=== PATIENT | female | born 1940 | race American Indian/Alaskan Native ===

== ENCOUNTER 2024-06-15 11:57 | Emergency (ER) | payer MEDICARE, OTHER ==
[2024-06-15 12:33] VITALS: BP 135/74; PULSE 58
== END 2024-06-15 13:37 | disposition home or self-care (01) ==
LOC: DL.ED 11:57
DX: U07.1 COVID-19 (principal); I10 Essential (primary) hypertension; Z79.899 Other long term (current) drug therapy; Z88.6 Allergy status to analgesic agent; Z88.5 Allergy status to narcotic agent
CPT/HCPCS: 71045; 87804; 99283; U0002

== ENCOUNTER 2025-01-07 17:00 | Emergency (ER) | payer MEDICARE, OTHER ==
[2025-01-07] MEDS ORDERED: Sodium Chloride 0.9% 10 ML Syringe FLUSH PRN (17:21)
[2025-01-07 17:38] LABS: BASOPHILS PERCENT AUTO 0.1 % (0.0-1.0); HEMATOCRIT 30.9 % (37.0-47.0); HEMOGLOBIN 10.1 g/dL (12.0-16.0); LYMPHOCYTES PERCENT AUTO 11.1 % (20.5-50.1); MEAN CORPUSCULAR HEMOGLOBIN 30.4 pg (27.0-34.0); MEAN CORPUSCULAR HGB CONC 32.7 g/dL (33.0-35.0); MEAN CORPUSCULAR VOLUME 93.1 fL (80-100); MONOCYTES PERCENT AUTO 10.9 % (2-8); NEUTROPHILS PERCENT AUTO 76.9 % (42.2-75.2); PLATELET COUNT,PLT 247 10^3/uL (150-450); RED BLOOD CELL COUNT 3.32 10^6/uL (4.2-5.4); WHITE BLOOD CELL COUNT,WBC 8.7 10^3/uL (5.0-10.0)
[2025-01-07 17:44] VITALS: BP 103/90; PULSE 48
[2025-01-07 17:54] LABS: INR 0.9 (0.9-1.2); PROTHROMBIN TIME 9.3 SEC (9.0-12.0)
[2025-01-07] MEDS: Aspirin 81 MG Tab.Chew PO ONE (17:56)
[2025-01-07 18:01] LABS: A/G RATIO 1.3; BILIRUBIN TOTAL 0.5 mg/dL (0.2-1.0); BUN/CREATININE RATIO 24.8 (No establ ref range); C-REACTIVE PROTEIN 0.52 ng/dL (<=0.50); CALCIUM 9.1 mg/dL (8.5-10.1); CREATININE 1.21 mg/dL (0.55-1.02); EST CRCL DRUG DOSING (CG) 28.35 mL/min; MAGNESIUM 1.8 mg/dL (1.8-2.4); PROTEIN TOTAL,TP 7.1 g/dL (6.4-8.2)
[2025-01-07 18:05] LABS: ANION GAP 14.9 mEq/L (7-13); POTASSIUM,K 4.9 mmol/L (3.5-5.1)
[2025-01-07 18:39] LABS: T4 FREE 1.08 ng/dL (0.76-1.46)
[2025-01-07] MEDS: Sodium Chloride 0.9% 1,000 ML IV ONE (18:42)
== END 2025-01-07 19:40 | disposition home or self-care (01) ==
LOC: DL.ED 17:00
DX: R60.0 Localized edema (principal); T46.2X5A Adverse effect of other antidysrhythmic drugs, initial encounter; B34.9 Viral infection, unspecified; I10 Essential (primary) hypertension; Z88.5 Allergy status to narcotic agent; Z79.899 Other long term (current) drug therapy; Z86.16 Personal history of COVID-19
CPT/HCPCS: 36415; 71045; 80053; 83735; 83880; 84439; 84443; 84484; 85025; 85610; 86140; 93005; 93010; 96360; 99284; 99285-25; A9270-GY; J7030

== ENCOUNTER 2025-02-09 05:20 | Emergency (ER) | payer MEDICARE, OTHER ==
[2025-02-09 05:34] VITALS: PULSE 59
[2025-02-09] MEDS ORDERED: Sodium Chloride 0.9% 10 ML Syringe FLUSH PRN (05:50)
[2025-02-09] MEDS: Aspirin 81 MG Tab.Chew PO ONE (05:57)
[2025-02-09 06:03] LABS: BASOPHILS PERCENT AUTO 0.3 % (0.0-1.0); EOSINOPHILS PERCENT AUTO 1.5 % (1.0-3.0); HEMATOCRIT 34.4 % (37.0-47.0); HEMOGLOBIN 11.1 g/dL (12.0-16.0); LYMPHOCYTES PERCENT AUTO 17.7 % (20.5-50.1); MEAN CORPUSCULAR HEMOGLOBIN 30.4 pg (27.0-34.0); MEAN CORPUSCULAR HGB CONC 32.3 g/dL (33.0-35.0); MEAN CORPUSCULAR VOLUME 94.2 fL (80-100); MONOCYTES PERCENT AUTO 10.9 % (2-8); NEUTROPHILS PERCENT AUTO 69.6 % (42.2-75.2); PLATELET COUNT,PLT 201 10^3/uL (150-450); RED BLOOD CELL COUNT 3.65 10^6/uL (4.2-5.4); WHITE BLOOD CELL COUNT,WBC 3.4 10^3/uL (5.0-10.0)
[2025-02-09] MEDS: Nitroglycerin 0.4 MG Tab.SL SL ONE (06:08)
[2025-02-09 06:25] LABS: A/G RATIO 1.2; ANION GAP 11.8 mEq/L (7-13); BILIRUBIN TOTAL 0.8 mg/dL (0.2-1.0); BUN/CREATININE RATIO 12.8 (No establ ref range); CALCIUM 9.1 mg/dL (8.5-10.1); CREATININE 0.78 mg/dL (0.55-1.02); EST CRCL DRUG DOSING (CG) 43.98 mL/min; MAGNESIUM 2.1 mg/dL (1.8-2.4); POTASSIUM,K 3.8 mmol/L (3.5-5.1); PROTEIN TOTAL,TP 7.4 g/dL (6.4-8.2)
[2025-02-09] MEDS: Acetaminophen 325 MG Tab PO ONE (06:30)
[2025-02-09] MEDS ORDERED: Lisinopril 10 MG Tab ONE (13:21)
[2025-02-09] MEDS: Lisinopril 10 MG Tab PO ONE (13:22)
[2025-02-09 13:23] VITALS: BP 0/0
== END 2025-02-09 07:35 | disposition home or self-care (01) ==
LOC: DL.ED 05:20
DX: M25.551 Pain in right hip (principal); I10 Essential (primary) hypertension; Z79.899 Other long term (current) drug therapy; Z88.5 Allergy status to narcotic agent; Z86.16 Personal history of COVID-19; X58.XXXA Exposure to other specified factors, initial encounter
CPT/HCPCS: 36415; 71045; 72100; 73502; 80053; 83735; 83880; 84484; 85025; 85379; 93005; 93010; 99284; 99285; A9270

== ENCOUNTER 2025-02-11 17:34 | Emergency (ER) | payer MEDICARE, OTHER ==
[2025-02-11 17:50] VITALS: BP 152/68; PULSE 62
== END 2025-02-11 18:09 | disposition home or self-care (01) ==
LOC: DL.ED 17:34
DX: I10 Essential (primary) hypertension (principal); Z86.16 Personal history of COVID-19; Z88.5 Allergy status to narcotic agent; Z79.899 Other long term (current) drug therapy
CPT/HCPCS: 99283

== ENCOUNTER 2025-04-01 20:40 | Emergency (ER) | payer MEDICARE, OTHER ==
[2025-04-01 21:02] VITALS: BP 165/63; PULSE 60
== END 2025-04-01 22:03 | disposition home or self-care (01) ==
LOC: DL.ED 20:40
DX: K60.0 Acute anal fissure (principal); K59.00 Constipation, unspecified; I10 Essential (primary) hypertension; Z86.16 Personal history of COVID-19; Z79.899 Other long term (current) drug therapy; Z88.5 Allergy status to narcotic agent
CPT/HCPCS: 74018; 99283

== ENCOUNTER 2025-04-06 08:32 | Emergency (ER) | payer MEDICARE, OTHER ==
[2025-04-06 09:17] LABS: BASOPHILS PERCENT AUTO 0.2 % (0.0-1.0); LYMPHOCYTES PERCENT AUTO 12.1 % (20.5-50.1); MEAN CORPUSCULAR HEMOGLOBIN 31.3 pg (27.0-34.0); MEAN CORPUSCULAR HGB CONC 33.3 g/dL (33.0-35.0); MEAN CORPUSCULAR VOLUME 93.8 fL (80-100); MONOCYTES PERCENT AUTO 10.3 % (2-8); NEUTROPHILS PERCENT AUTO 76.4 % (42.2-75.2); PLATELET COUNT,PLT 314 10^3/uL (150-450)
[2025-04-06 09:37] LABS: A/G RATIO 1.2; ALBUMIN 3.6 g/dL (3.4-5.0); ANION GAP 15.2 mEq/L (7-13); BILIRUBIN DIRECT 0.1 mg/dL (0.0-0.2); BILIRUBIN INDIRECT 0.5; BILIRUBIN TOTAL 0.6 mg/dL (0.2-1.0); CALCIUM 9.4 mg/dL (8.5-10.1); CREATININE 0.9 mg/dL (0.55-1.02); EST CRCL DRUG DOSING (CG) 38.12 mL/min; POTASSIUM,K 4.2 mmol/L (3.5-5.1); PROTEIN TOTAL,TP 6.6 g/dL (6.4-8.2)
[2025-04-06 09:42] LABS: PROTHROMBIN TIME 10.1 SEC (9.0-12.0)
[2025-04-06] MEDS: Iopamidol 612 MG/ML 100 ML Bottle IVPUSH ONE (10:12)
[2025-04-06] MEDS: Acetaminophen 325 MG Tab PO ONE (11:00)
[2025-04-06 11:38] LABS: APPEARANCE,URINE CLEAR (CLEAR); BILIRUBIN,URINE NEGATIVE (NEGATIVE); COLOR,URINE YELLOW (YELLOW); GLUCOSE,URINE NEGATIVE (NEGATIVE); KETONES,URINE NEGATIVE (NEGATIVE); LEUKOCYTE ESTERASE,URINE NEGATIVE (NEGATIVE); NITRITE,URINE NEGATIVE (NEGATIVE); OCCULT BLOOD,URINE NEGATIVE (NEGATIVE); PROTEIN,URINE NEGATIVE (NEGATIVE); UROBILINOGEN,URINE 0.2 mg/dL (0.2-1.0)
[2025-04-06 11:45] LABS: BACTERIA,URINE RARE /HPF (0-FEW/HPF); EPITHELIAL CELLS,URINE RARE /HPF (NOT SEEN); RBC,URINE NOT SEEN /HPF (0-5); WBC,URINE NOT SEEN /HPF (0-5/HPF)
[2025-04-06 11:46] LABS: MUCUS,URINE RARE /LPF (NOT SEEN)
[2025-04-06 12:26] VITALS: BP 103/55; PULSE 58
== END 2025-04-06 12:30 | disposition home or self-care (01) ==
LOC: DL.ED 08:32
DX: R10.84 Generalized abdominal pain (principal); I10 Essential (primary) hypertension; Z86.16 Personal history of COVID-19; Z88.5 Allergy status to narcotic agent; Z79.899 Other long term (current) drug therapy
CPT/HCPCS: 36415; 74177; 80048; 80076; 81001; 82150; 83690; 85025; 85610; 93005; 93010; 99283; 99284; A9270; Q9967

== ENCOUNTER 2025-04-12 11:03 | Emergency (ER) | payer MEDICARE, OTHER ==
[2025-04-12] MEDS ORDERED: Sodium Chloride 0.9% 10 ML Syringe FLUSH PRN (11:48)
[2025-04-12 12:20] LABS: BASOPHILS PERCENT AUTO 0.2 % (0.0-1.0); EOSINOPHILS PERCENT AUTO 0.5 % (1.0-3.0); HEMATOCRIT 33.7 % (37.0-47.0); HEMOGLOBIN 10.8 g/dL (12.0-16.0); LYMPHOCYTES PERCENT AUTO 12.3 % (20.5-50.1); MEAN CORPUSCULAR HEMOGLOBIN 30.8 pg (27.0-34.0); MONOCYTES PERCENT AUTO 8.6 % (2-8); NEUTROPHILS PERCENT AUTO 78.4 % (42.2-75.2); PLATELET COUNT,PLT 312 10^3/uL (150-450); RED BLOOD CELL COUNT 3.51 10^6/uL (4.2-5.4)
[2025-04-12] MEDS: Lactated Ringers 1,000 ML IV SCH (12:25)
[2025-04-12 12:39] LABS: INR 0.9 (0.9-1.2); PROTHROMBIN TIME 9.9 SEC (9.0-12.0)
[2025-04-12 12:41] LABS: APPEARANCE,URINE CLEAR (CLEAR); BILIRUBIN,URINE SMALL (NEGATIVE); COLOR,URINE YELLOW (YELLOW); GLUCOSE,URINE NEGATIVE (NEGATIVE); KETONES,URINE 15 (NEGATIVE); LEUKOCYTE ESTERASE,URINE NEGATIVE (NEGATIVE); NITRITE,URINE NEGATIVE (NEGATIVE); OCCULT BLOOD,URINE NEGATIVE (NEGATIVE); PH,URINE 5.5 (5.0-9.0); PROTEIN,URINE TRACE (NEGATIVE); UROBILINOGEN,URINE 0.2 mg/dL (0.2-1.0)
[2025-04-12 12:46] LABS: A/G RATIO 1.4; ALBUMIN 4.2 g/dL (3.4-5.0); ANION GAP 14.1 mEq/L (7-13); BILIRUBIN TOTAL 0.6 mg/dL (0.2-1.0); BUN/CREATININE RATIO 19.6 (No establ ref range); CALCIUM 9.6 mg/dL (8.5-10.1); CREATININE 0.92 mg/dL (0.55-1.02); EST CRCL DRUG DOSING (CG) 37.29 mL/min; MAGNESIUM 2.1 mg/dL (1.8-2.4); POTASSIUM,K 4.1 mmol/L (3.5-5.1); PROTEIN TOTAL,TP 7.1 g/dL (6.4-8.2)
[2025-04-12 13:04] LABS: BACTERIA,URINE FEW /HPF (0-FEW/HPF); EPITHELIAL CELLS,URINE RARE /HPF (NOT SEEN); MUCUS,URINE MODERATE /LPF (NOT SEEN); RBC,URINE 0-5 /HPF (0-5); WBC,URINE 0-5 /HPF (0-5/HPF)
[2025-04-12 14:32] VITALS: BP 131/55; PULSE 53
== END 2025-04-12 14:13 | disposition home or self-care (01) ==
LOC: DL.ED 11:03
DX: E86.0 Dehydration (principal); R00.1 Bradycardia, unspecified; M65.4 Radial styloid tenosynovitis [de Quervain]; I10 Essential (primary) hypertension; Z86.16 Personal history of COVID-19; Z79.899 Other long term (current) drug therapy; Z88.5 Allergy status to narcotic agent
CPT/HCPCS: 36415; 80053; 81001; 83690; 83735; 84484; 85025; 85610; 93005; 93010; 96360; 99284; J7120

== ENCOUNTER 2025-04-14 09:51 | Emergency (ER) | payer MEDICARE, OTHER ==
[2025-04-14] MEDS: Iopamidol 612 MG/ML 100 ML Bottle IVPUSH ONE (10:31)
[2025-04-14 10:39] LABS: BASOPHILS PERCENT AUTO 0.2 % (0.0-1.0); EOSINOPHILS PERCENT AUTO 0.4 % (1.0-3.0); HEMATOCRIT 31.2 % (37.0-47.0); HEMOGLOBIN 10.3 g/dL (12.0-16.0); LYMPHOCYTES PERCENT AUTO 10.8 % (20.5-50.1); MEAN CORPUSCULAR HEMOGLOBIN 31.5 pg (27.0-34.0); MEAN CORPUSCULAR VOLUME 95.4 fL (80-100); MONOCYTES PERCENT AUTO 9.2 % (2-8); NEUTROPHILS PERCENT AUTO 79.4 % (42.2-75.2); PLATELET COUNT,PLT 309 10^3/uL (150-450); RED BLOOD CELL COUNT 3.27 10^6/uL (4.2-5.4)
[2025-04-14 10:51] LABS: A/G RATIO 1.6; ALANINE AMINOTRANSFERASE,ALT 24 U/L (14-59); ALBUMIN 4.2 g/dL (3.4-5.0); ALKALINE PHOSPHATASE 60 U/L (46-116); ANION GAP 13.2 mEq/L (7-13); ASPARTATE AMNIOTRANSFERASE,AST 18 U/L (15-37); BILIRUBIN TOTAL 0.8 mg/dL (0.2-1.0); BLOOD UREA NITROGEN,BUN 14 mg/dL (7-18); BUN/CREATININE RATIO 16.9 (No establ ref range); CALCIUM 9.2 mg/dL (8.5-10.1); CARBON DIOXIDE,CO2 26 mmol/L (21-32); CHLORIDE,CL 101 mmol/L (98-107); CREATININE 0.83 mg/dL (0.55-1.02); ESTIMATED GFR 70 mL/min (>=60); GLUCOSE RANDOM 101 mg/dL (70-99); LIPASE 34 U/L (16-77); POTASSIUM,K 4.2 mmol/L (3.5-5.1); PROTEIN TOTAL,TP 6.8 g/dL (6.4-8.2); SODIUM,NA 136 mmol/L (136-145)
[2025-04-14 10:55] VITALS: BP 143/83; PULSE 68
[2025-04-14 11:22] LABS: APPEARANCE,URINE CLEAR (CLEAR); BILIRUBIN,URINE NEGATIVE (NEGATIVE); COLOR,URINE YELLOW (YELLOW); GLUCOSE,URINE NEGATIVE (NEGATIVE); KETONES,URINE NEGATIVE (NEGATIVE); LEUKOCYTE ESTERASE,URINE NEGATIVE (NEGATIVE); NITRITE,URINE NEGATIVE (NEGATIVE); OCCULT BLOOD,URINE NEGATIVE (NEGATIVE); PH,URINE 6.5 (5.0-9.0); PROTEIN,URINE NEGATIVE (NEGATIVE); UROBILINOGEN,URINE 0.2 mg/dL (0.2-1.0)
[2025-04-14] MEDS: Sodium Chloride 0.9% 500 ML IV ONE (13:06)
[2025-04-14] MEDS: Ketorolac 30 MG/ML SDV IVPUSH ONE (13:07)
[2025-04-14] MEDS: fentaNYL 100 MCG/2 ML SDV IVPUSH ONE (14:04)
[2025-04-14] MEDS: GI Cocktail Oral Solution 30 ML PO ONE (14:36)
== END 2025-04-14 15:44 | disposition home or self-care (01) ==
LOC: DL.ED 09:51
DX: R10.84 Generalized abdominal pain (principal); M79.10 Myalgia, unspecified site; I10 Essential (primary) hypertension; Z88.5 Allergy status to narcotic agent; Z88.8 Allergy status to other drugs, medicaments and biological substances; Z86.16 Personal history of COVID-19
CPT/HCPCS: 36415; 71260; 74177; 80053; 81003; 83605; 83690; 83735; 84484; 85025; 93005; 93010; 96374; 99284; 99285; A9270; J3010; J7040; Q9967

== ENCOUNTER 2025-05-17 15:20 | Emergency (ER) | payer MEDICARE, MEDICAID ==
[2025-05-17 15:13] VITALS: BP 110/64; PULSE 58
[~2025-05-17 15:20] MED LIST: Sodium Chloride 0.9% 10 ML Syringe FLUSH PRN
[2025-05-17 15:24] LABS: BASOPHILS PERCENT AUTO 0.2 % (0.0-1.0); EOSINOPHILS PERCENT AUTO 0.7 % (1.0-3.0); LYMPHOCYTES PERCENT AUTO 14.6 % (20.5-50.1); MONOCYTES PERCENT AUTO 10.8 % (2-8); NEUTROPHILS PERCENT AUTO 73.7 % (42.2-75.2); PLATELET COUNT,PLT 275 10^3/uL (150-450); RED BLOOD CELL COUNT 3.23 10^6/uL (4.2-5.4); WHITE BLOOD CELL COUNT,WBC 5.5 10^3/uL (5.0-10.0)
[2025-05-17 15:42] LABS: A/G RATIO 1.6; ALANINE AMINOTRANSFERASE,ALT 25 U/L (14-59); ASPARTATE AMNIOTRANSFERASE,AST 22 U/L (15-37); BILIRUBIN TOTAL 1.2 mg/dL (0.2-1.0); BLOOD UREA NITROGEN,BUN 24 mg/dL (7-18); CARBON DIOXIDE,CO2 25 mmol/L (21-32); CHLORIDE,CL 105 mmol/L (98-107); CREATININE 0.83 mg/dL (0.55-1.02); EST CRCL DRUG DOSING (CG) 44.90 mL/min; GLUCOSE RANDOM 101 mg/dL (70-99); POTASSIUM,K 3.7 mmol/L (3.5-5.1); PROTEIN TOTAL,TP 6.7 g/dL (6.4-8.2); SODIUM,NA 140 mmol/L (136-145)
[2025-05-17 15:43] LABS: ESTIMATED GFR 70 mL/min (>=60)
[2025-05-17 15:45] LABS: LACTIC ACID 0.7 mmol/L (0.4-2.0)
[2025-05-17 15:46] LABS: INR 1.0 (0.9-1.2); PTT,PARTIAL THROMBOPLSTIN TIME 26.4 SEC (22.0-34.0)
== END 2025-05-17 16:19 | disposition home or self-care (01) ==
LOC: DL.ED 15:20
DX: K92.2 Gastrointestinal hemorrhage, unspecified (principal); I10 Essential (primary) hypertension; Z86.16 Personal history of COVID-19; Z88.7 Allergy status to serum and vaccine; Z88.5 Allergy status to narcotic agent; Z79.899 Other long term (current) drug therapy
CPT/HCPCS: 36415; 80053; 82272; 83605; 83735; 85025; 85610; 85730; 86140; 99284; A9270

== ENCOUNTER 2025-05-17 21:31 | Emergency (ER) | payer MEDICARE, MEDICAID ==
[2025-05-17] MEDS ORDERED: Sodium Chloride 0.9% 10 ML Syringe FLUSH PRN (21:34)
[2025-05-17 22:02] LABS: BASOPHILS PERCENT AUTO 0.2 % (0.0-1.0); EOSINOPHILS PERCENT AUTO 1.4 % (1.0-3.0); LYMPHOCYTES PERCENT AUTO 14.9 % (20.5-50.1); MONOCYTES PERCENT AUTO 11.6 % (2-8); NEUTROPHILS PERCENT AUTO 71.9 % (42.2-75.2); PLATELET COUNT,PLT 269 10^3/uL (150-450); RED BLOOD CELL COUNT 3.23 10^6/uL (4.2-5.4); WHITE BLOOD CELL COUNT,WBC 5.7 10^3/uL (5.0-10.0)
[2025-05-17] MEDS: Take Home: Acetaminophen/oxyCODONE 325-5 MG, 5 Tab Pack PO ONE (22:31)
[2025-05-18 07:13] VITALS: BP 124/75; PULSE 59
== END 2025-05-18 07:11 | disposition home or self-care (01) ==
LOC: DL.ED 21:31
DX: K92.2 Gastrointestinal hemorrhage, unspecified (principal); I10 Essential (primary) hypertension; Z88.7 Allergy status to serum and vaccine; Z88.5 Allergy status to narcotic agent; Z79.899 Other long term (current) drug therapy; Z86.16 Personal history of COVID-19
CPT/HCPCS: 36415; 85025; 96365; 99285; A9270; J2470

== ENCOUNTER 2025-05-18 15:18 | Emergency (ER) | payer MEDICARE, MEDICAID ==
[2025-05-18 15:32] VITALS: BP 128/64; PULSE 57
[2025-05-18 17:28] LABS: BASOPHILS PERCENT AUTO 0.2 % (0.0-1.0); EOSINOPHILS PERCENT AUTO 0.5 % (1.0-3.0); LYMPHOCYTES PERCENT AUTO 13.3 % (20.5-50.1); MONOCYTES PERCENT AUTO 7.1 % (2-8); NEUTROPHILS PERCENT AUTO 78.9 % (42.2-75.2); PLATELET COUNT,PLT 266 10^3/uL (150-450); RED BLOOD CELL COUNT 3.56 10^6/uL (4.2-5.4); WHITE BLOOD CELL COUNT,WBC 5.9 10^3/uL (5.0-10.0)
[2025-05-18 17:45] LABS: BLOOD UREA NITROGEN,BUN 20 mg/dL (7-18); CARBON DIOXIDE,CO2 25 mmol/L (21-32); CHLORIDE,CL 104 mmol/L (98-107); CREATININE 0.68 mg/dL (0.55-1.02); EST CRCL DRUG DOSING (CG) 45.82 mL/min; GLUCOSE RANDOM 92 mg/dL (70-99); POTASSIUM,K 3.4 mmol/L (3.5-5.1); SODIUM,NA 138 mmol/L (136-145)
[2025-05-18 17:46] LABS: ESTIMATED GFR 87 mL/min (>=60)
[2025-05-18 17:50] LABS: LACTIC ACID 0.7 mmol/L (0.4-2.0)
== END 2025-05-18 18:52 | disposition home or self-care (01) ==
LOC: DL.ED 15:18
DX: K92.2 Gastrointestinal hemorrhage, unspecified (principal); I10 Essential (primary) hypertension; Z88.7 Allergy status to serum and vaccine; Z88.5 Allergy status to narcotic agent; Z79.899 Other long term (current) drug therapy; Z86.16 Personal history of COVID-19
CPT/HCPCS: 36415; 80048; 83605; 83735; 85025; 86140; 99285

== ENCOUNTER 2025-06-21 06:02 | Day surgery (SDC) | payer MEDICARE, MEDICAID, OTHER ==
[~2025-06-21 06:02] MED LIST changes: +Propofol 200 MG/20 ML SDV ONE; -Sodium Chloride 0.9% 10 ML Syringe FLUSH PRN
[2025-06-21] MEDS ORDERED: Lactated Ringers 1,000 ML IV ONE (06:03)
[2025-06-21] MEDS ORDERED: Propofol 200 MG/20 ML SDV IV ONE (06:03)
[2025-06-21] MEDS: Lactated Ringers 1,000 ML IV SCH (06:32)
[2025-06-21 08:07] VITALS: BP 155/62; PULSE 46
== END 2025-06-21 08:44 ==
LOC: DL.ENDO 06:02
PROVIDERS: ATTEND Internal Medicine Gastroenterology
DX: K29.50 Unspecified chronic gastritis without bleeding (principal); D64.9 Anemia, unspecified; I10 Essential (primary) hypertension; Z79.899 Other long term (current) drug therapy
CPT/HCPCS: 88305; J2003; J2704; J7120

== ENCOUNTER 2025-06-24 13:50 | Emergency (ER) | payer MEDICARE, MEDICAID, OTHER ==
[2025-06-24 13:58] VITALS: BP 142/67; PULSE 68
[2025-06-24] MEDS: Take Home: hydrOXYzine HCl 25 MG Tab, 4 Tab Pack PO ONE (15:17)
== END 2025-06-24 14:33 | disposition home or self-care (01) ==
LOC: DL.ED 13:50
DX: M79.604 Pain in right leg (principal); I10 Essential (primary) hypertension; Z88.5 Allergy status to narcotic agent; Z88.7 Allergy status to serum and vaccine; Z79.899 Other long term (current) drug therapy; Z86.16 Personal history of COVID-19
CPT/HCPCS: 99283; A9270

== ENCOUNTER 2025-07-30 20:24 | Emergency (ER) | payer MEDICARE, MEDICAID ==
[2025-07-30 23:36] VITALS: BP 135/64; PULSE 70
== END 2025-07-30 23:30 | disposition home or self-care (01) ==
LOC: DL.ED 20:24
DX: M25.551 Pain in right hip (principal); I10 Essential (primary) hypertension; K21.9 Gastro-esophageal reflux disease without esophagitis; Z88.7 Allergy status to serum and vaccine; Z88.8 Allergy status to other drugs, medicaments and biological substances; Z79.899 Other long term (current) drug therapy; Z86.16 Personal history of COVID-19; W01.0XXA Fall on same level from slipping, tripping and stumbling without subsequent striking against object, initial encounter
CPT/HCPCS: 25605; 72040; 73030; 73502; 99284; 99285; A9270

== ENCOUNTER 2025-07-31 06:56 | Emergency (ER) | payer MEDICARE, MEDICAID ==
[2025-07-31 07:09] VITALS: BP 107/72; PULSE 56
[2025-07-31 07:52] LABS: BASOPHILS PERCENT AUTO 0.1 % (0.0-1.0); EOSINOPHILS PERCENT AUTO 0.0 % (1.0-3.0); LYMPHOCYTES PERCENT AUTO 3.7 % (20.5-50.1); MONOCYTES PERCENT AUTO 7.3 % (2-8); NEUTROPHILS PERCENT AUTO 88.9 % (42.2-75.2); PLATELET COUNT,PLT 266 10^3/uL (150-450); RED BLOOD CELL COUNT 4.34 10^6/uL (4.2-5.4); WHITE BLOOD CELL COUNT,WBC 14.1 10^3/uL (5.0-10.0)
[2025-07-31 07:56] LABS: BLOOD UREA NITROGEN,BUN 23 mg/dL (7-18); CARBON DIOXIDE,CO2 27 mmol/L (21-32); CHLORIDE,CL 101 mmol/L (98-107); CREATININE 0.81 mg/dL (0.55-1.02); GLUCOSE RANDOM 122 mg/dL (70-99); INR 1.0 (0.9-1.2); POTASSIUM,K 3.7 mmol/L (3.5-5.1); SODIUM,NA 142 mmol/L (136-145)
[2025-07-31 08:04] LABS: ESTIMATED GFR 72 mL/min (>=60)
== END 2025-07-31 10:05 ==
LOC: DL.ED 06:56
DX: S06.5X0A Traumatic subdural hemorrhage without loss of consciousness, initial encounter (principal); S01.01XA Laceration without foreign body of scalp, initial encounter; I10 Essential (primary) hypertension; Z86.16 Personal history of COVID-19; Z88.5 Allergy status to narcotic agent; Z88.7 Allergy status to serum and vaccine; Z79.899 Other long term (current) drug therapy; W01.198A Fall on same level from slipping, tripping and stumbling with subsequent striking against other object, initial encounter
CPT/HCPCS: 12002; 36415; 70450; 72170; 80048; 85025; 85610; 99285